=== PATIENT | male | born 1950 | race Caucasian/White ===

== ENCOUNTER → 2022-05-29 08:32 | Outpatient (BNVA) | payer MEDICARE, SELFPAY | PROVIDERS: PCP Registered Nurse; Visit Provider Nurse Practitioner Family | DX: E11.65 Type 2 diabetes mellitus with hyperglycemia (principal); I10 Essential (primary) hypertension; E78.2 Mixed hyperlipidemia; R35.1 Nocturia; Z79.899 Other long term (current) drug therapy | CPT/HCPCS: 80053; 80061; 83036; 83735; 84443; 85025; G0103 ==